=== PATIENT | male | born 1995 | race Caucasian/White ===

== ENCOUNTER 2018-09-27 16:42 | Inpatient (IN) | payer OTHER ==
[~2018-09-27] VITALS: Ht 175.3 cm; Wt 76.2 kg
--- NOTE | ~2018-09-27 | CON ---
[address] [address] CONSULTATION Name: RHONA CHAMPION I Room: [address] IN .R.#: [id number] Admission: 09/27/18 Attend Phys: Tom Mckinnon MD Discharge: Date of : 89 Report #: [id number] THIS REPORT FOR: //name// CC: Tom Mckinnon [facility] physician/PCP DATE OF SERVICE: 09/28/2018 HISTORY OF PRESENT ILLNESS: This is a 23-year-old male patient who was evaluated by me for seizure. The patient's history was reviewed and it does looks like he probably had a grand mal seizure and there was a postictal period. He is pretty evasive historian. From combining record and his history, it looks like he takes Xanax and he takes more Xanax than any prescribes then he runs out of the medication and cannot get it filled and then, he had a seizure. He had similar episode about a year ago according to him and he was at [place]. He indicated he saw me in [place], but I do not go to [place]. I do not have any records from [place]. He also does multiple things with his pills, which is not supposed to do. He said he has a restless leg syndrome and he was prescribed Ultram, which was ineffective and now he takes some narcotics from the street and that helps. He smokes marijuana. He is evasive about how much he smokes. He has never been on seizure medications. He does have a history of insomnia. He follows up with the psychiatrist but is pretty circumvent when did it lasts his psychiatrist. He said he does not have a family doctor, but is looking for one. REVIEW OF SYSTEMS: A 14-point review of system was carried out. The patient appeared to have pretty significant psychiatric problems. When he came in, he was tachycardic; however, his white count was normal. His potassium was low at 3.4. Rest of the 14-point review of system was noncontributory. PAST MEDICAL HISTORY: Positive for seizure but that also occurred in relation to benzodiazepine withdrawal and he took more than prescribed dose of medication and then ran out of it and the physician will not refill it. FAMILY HISTORY: Unremarkable. SOCIAL HISTORY: He indicates he does not drink alcohol. PHYSICAL EXAMINATION: NEUROLOGICAL: Indicate the patient is alert, responsive and oriented. He can follow simple command. His cranial nerve examination appear mostly unremarkable. His strength, sensation, reflexes and tone looks unremarkable. He has no papilledema. There is no meningeal sign. There is no cerebellar sign. CARDIAC: Examination is unremarkable. LUNGS: No [place] [address] CONSULTATION Name: RICHELLEKETURAHRHONA I Room: [address] IN .#: [id number] Admission: 09/27/18 Attend Phys: Tom Mckinnon MD Discharge: Date of : 89 Report #: [id number] GENERAL: He is reasonably built individual who does not have any dysmorphic features of eyes, ears and face. NECK: He has no thyroid mass. HEENT: No vision or auditory problem was detected. VITAL SIGNS: Blood pressure is 133/88, respirations 15, pulse is 83 and temperature is 99.2. RADIOLOGICAL DATA: He did have a CT scan of the head that was reviewed and that was unremarkable. Might mention 2 weeks ago, the patient slept on a chair and woke up with weakness of the left hand, which is in the radial nerve distribution. He has no neck symptoms. IMPRESSION: 1. Benzodiazepine withdrawal seizure in a patient who has pretty significant psychiatric history as well as a problem with both prescriptions and street drugs. 2. Left radial pulsy. RECOMMENDATIONS: 1. I will suggest a psychiatric consult in this patient for the above problems. 2. I will get an EEG and MRI done. 3. He needs to be restarted on benzodiazepine if necessary in a coordinated fashion and that need to be addressed by a psychiatric consult. 4. I discussed with him seizure medication, but typically seizure medication is not started in benzodiazepine withdrawal seizure, but I did discuss his options with him. He does need to take seizure precautions and he cannot drive for 6 months. I discussed seizure precautions with him and those does include not working on height, near moving machinery or any other place where he can hurt himself. 5. For the radial nerve palsy, I will suggest occupational and physical therapy in this patient and if he does not become better, then he will need further workup as an outpatient. 6. This patient has a history of restless leg syndrome. That is not an established history. His history is not classical for that and he has tried all kind of unusual treatment. He needs to go to [facility] on discharge and get a sleep study and see one of the physician who specialized in sleep medicine to address that question further. Thank you very much for this referral and if you have any question, please feel free to contact me. By: [id number] Plummer MD /[place]ton
--- NOTE | ~2018-09-27 | EEG ---
[address] [address] EEG STUDY REPORT Name: RHONA CHAMPION I Room: [address] IN .R.#: [id number] Admission: 09/27/18 Attend Phys: Tom Mckinnon MD Discharge: Date of : 89 Report #: [id number] THIS REPORT FOR: //name// CC: Tom Mckinnon [facility] physician/PCP DATE OF SERVICE: 09/28/2018 This patient is being evaluated for the possibility of seizure. EEG was done by placing the electrodes by standard 10-20 system of electrode placement. Both referential and sequential montages were used for recording. Background activity in this patient's EEG is about 9-10 Hz and 30 microvolts. This is a symmetrical activity. The patient went to sleep that is associated with bilaterally symmetrical sleep spindle and vertex sharp waves. Lot of muscle artifact is present because of the patient's inability to stay still. I talked to the hardware technician and he confirmed it was a muscle artifact. IMPRESSION: This patient's EEG was unremarkable and did not show any active epileptiform activity. The EEG can be normal in a patient with a seizure disorder. Further workup can be done to evaluate the patient for seizure disorder if clinically indicated. That had been discussed with the patient. Combining the history, it would appear that the most likely etiology for the patient's seizure was benzodiazepine withdrawal seizure. We will suggest a Psychiatry consult and they may like to start him on some medication, which has antianxiety effect as well as anti-seizure effect if clinically indicated. Thank you very much for this referral. By: [id number] Plummer MD /nt
[2018-09-27 16:43] VITALS: BP 148/103
[2018-09-27] MEDS ORDERED: XANAX1 MG PO (16:47)
[2018-09-27 17:13] LABS: ABSOLUTE BASOPHILS 0.1 thou/uL (0.0-0.2); ABSOLUTE EOSINOPHILS 0.1 thou/uL (0.0-0.7); ABSOLUTE LYMPHOCYTES 3.1 thou/uL (0.8-5.3); ABSOLUTE MONOCYTES 0.6 thou/uL (0.0-1.2); BASOPHILS 0.7 %; HEMATOCRIT 42.5 % (42.0-52.0); HEMOGLOBIN 14.3 gm/dL (14.0-18.0); LYMPHOCYTES 35.2 %; MCH 31.3 pg (26.0-34.0); MCHC 33.6 g/dL (28.0-37.0); MCV 93.2 fL (80.0-100.0); MONOCYTES 6.8 %; MPV 8.6 fl. (7.2-11.1); NUCLEATED RBCS 0 /100WBC; PLATELET COUNT* 348 thou/uL (150-400); POLYS 56.3 %; RBC 4.56 mil/uL (4.50-6.00); WBC 8.9 thou/uL (4.0-11.0)
[2018-09-27 17:19] LABS: ANION GAP 10 mmol/L (7-16); BUN 4 mg/dL (7-18); CALCIUM 9.5 mg/dL (8.5-10.1); CHLORIDE 104 mmol/L (98-107); CO2 27 mmol/L (21-32); CREATININE 1.1 mg/dL (0.6-1.3); GLUCOSE 111 mg/dL (70-99); POTASSIUM 3.4 mmol/L (3.5-5.1); SODIUM 141 mmol/L (136-145)
[2018-09-27 17:26] LABS: ALKALINE PHOSPHATASE 73 U/L (46-116); SGOT 13 U/L (15-37); SGPT 16 U/L (30-65); TOTAL BILIRUBIN 0.6 mg/dL (<0.1-1.0); TOTAL PROTEIN 7.4 g/dL (6.4-8.2); TROPONIN-I LEVEL <0.06 ng/mL (<0.06)
[2018-09-27 18:25] LABS: URINE BILIRUBIN NEGATIVE (Negative); URINE BLOOD TRACE (Negative); URINE CLARITY CLEAR; URINE COLOR YELLOW; URINE GLUCOSE-RANDOM NEGATIVE (Negative); URINE KETONES TRACE (Negative); URINE LEUKOCYTES-REFLEX NEGATIVE (Negative); URINE NITRITE-REFLEX NEGATIVE (Negative); URINE PROTEIN 2+ (Negative); URINE SPECIFIC GRAVITY 1.025 (1.005-1.030); URINE UROBILINOGEN 0.2 E.U./dl (0.2-1.0)
[2018-09-27 18:31] LABS: AMP/METHAMP Negative (Negative); BARBITURATES Negative (Negative); BENZODIAZEPINES POSITIVE (Negative); COCAINE Negative (Negative); METHADONE Negative (Negative); OPIATES POSITIVE (Negative); PCP Negative (Negative); THC POSITIVE (Negative)
[2018-09-27 18:32] VITALS: BP 135/76
[2018-09-27 18:36] LABS: BACTERIA-REFLEX 1-9 Few /HPF (None Seen); CASTS None Seen /LPF (None Seen); CRYSTALS None Seen /LPF (None Seen); SQUAMOUS NONE SEEN /LPF (0-3); URINE RBC 0-2 Rare /HPF (0-2); URINE WBC-REFLEX 0-5 Rare /HPF (0-5)
[2018-09-27 18:45] VITALS: BP 135/76
[2018-09-27 19:23] VITALS: BP 135/76
[2018-09-27 20:05] VITALS: BP 122/76
[2018-09-28] VITALS: BP 114/59
[2018-09-28 04:00] VITALS: BP 106/54
[2018-09-28 08:00] VITALS: BP 130/86
--- NOTE | 2018-09-28 09:32 | EKG ---
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 CHANG : 1995 Requested By: Jose Alfredo Posada Order Number: [id number] : Sampson Solo Measurements Intervals [place] Rate: 126 P: 60 MA: 134 QRS: 74 QRSD: 102 T: -41 QT: 361 QTc: 523 Interpretive Statements Sinus tachycardia Borderline T abnormalities, diffuse leads Prolonged QT interval No previous ECG available for comparison Electronically Signed On 09-28-2018 9:31:54 [employer]ONE LAT[employer] OPERATOR by Sampson Solo [email or web address] <ELECTRONICALLY SIGNED> By: Sampson Solo MD, [facility] 09/28/18 0931 165 50 Sampson Solo MD, [facility] /EPI
[2018-09-28 11:55] VITALS: BP 133/88
[2018-09-28 15:30] LABS: CALCIUM 8.9 mg/dL (8.5-10.1); CREATININE 0.9 mg/dL (0.6-1.3); POTASSIUM 3.3 mmol/L (3.5-5.1)
[2018-09-28 20:00] VITALS: BP 156/95
[2018-09-29] VITALS: BP 124/78
[2018-09-29 04:00] VITALS: BP 140/78
[2018-09-29 08:00] VITALS: BP 132/85
[2018-09-29 11:50] VITALS: BP 132/85
== END 2018-09-29 12:25 | disposition home or self-care (01) | DRG 101 ==
LOC: M.ERS 16:42 → M.TBA-ER 17:57 → M.2W 17:57
PROVIDERS: Emergency Medicine Emergency Medical Services; Internal Medicine; ADMIT Internal Medicine
DX: G40.409 Other generalized epilepsy and epileptic syndromes, not intractable, without status epilepticus (principal); F13.239 Sedative, hypnotic or anxiolytic dependence with withdrawal, unspecified; G47.00 Insomnia, unspecified; G56.32 Lesion of radial nerve, left upper limb; G25.81 Restless legs syndrome; F11.10 Opioid abuse, uncomplicated; F12.10 Cannabis abuse, uncomplicated; E87.6 Hypokalemia; Z79.899 Other long term (current) drug therapy